=== PATIENT | female | born 1985 | race Caucasian/White ===

== ENCOUNTER 2020-11-27 10:37 | Outpatient (REF) | payer OTHER, SELFPAY ==
[2020-11-27 11:45] LABS: Blood Urea Nitrogen 12 mg/dL (9-16); Estimated Glomerular Filt Rate > 60
== END 2020-11-27 10:38 | disposition home or self-care (01) ==
LOC: HO.LAB 10:37
PROVIDERS: Visit Provider Psychiatry & Neurology Neurology
DX: R53.82 Chronic fatigue, unspecified (principal); G40.909 Epilepsy, unspecified, not intractable, without status epilepticus
CPT/HCPCS: 36415; 82565; 84520

== ENCOUNTER 2021-05-31 11:21 | Emergency (ER) | payer OTHER, SELFPAY ==
--- NOTE | ~2021-05-31 | XR_ITS ---
EXAMINATION: PORTABLE CHEST 1 VIEW CLINICAL INFORMATION: possible fungal infection? . COMPARISON: 02/02/2012. TECHNIQUE: Portable frontal view of the chest was obtained. FINDINGS: The lungs are well expanded. No focal infiltrate, effusion, edema, or pneumothorax. Cardiac and mediastinal silhouettes are within normal limits for technique. No acute bony abnormality seen. XR/XR chest 1V IMPRESSION: No evidence of acute disease.
[2021-05-31 11:52] VITALS: BP 114/79; PULSE 96; RESP 18; TEMP 36.6; O2SAT 98; BMI 25.0
--- NOTE | 2021-05-31 12:57 | ED.GENADULT ---
HPI - General Adult General Chief complaint: General Medical Stated complaint: rash Time Seen by Provider: 05/31/21 12:01 Source: patient Mode of arrival: ambulatory Limitations: no limitations History of Present Illness HPI narrative: Patient comes emergency room complaining of a rash that started approximately 2 weeks ago in her right upper back. Patient states that she was in [facility], prescribed topical antifungals and steroids. Patient states that the rash popped out in her left leg, vaginal wall, prescribed oral cephalexin, patient states the rash is now starting to appear under her right arm. Patient reports a 20 lb weight loss in 3-4 weeks. Patient has been applying vaseline ointment Related Data Previous Rx's Medication Instructions Recorded prednisone 50 mg tablet 50 mg PO DAILY #5 tab 05/31/21 triamcinolone acetonide 0.1 % 1 appl TOPICAL TID #80 g 05/31/21 topical ointment Allergies Allergy/AdvReac Type Severity Reaction Status Date / Time carisoprodol [From SOMA] Allergy Intermediate DOUBLE Unverified 04/11/20 15:56 VISION edrophonium [From TENSILON] Allergy Intermediate TACHYCARDIA Unverified 04/11/20 15:56 nitrofurantoin Allergy Intermediate TACHYCARDIA, Unverified 04/11/20 15:56 [From MACROBID] HIVES lactase Allergy Unknown GI ISSUES Unverified 04/11/20 15:56 [From LACTOSE FAST ACTING RELIEF] Review of Systems Review of Systems: Constitutional : No Weight loss, No Fever, No Chills, No Night Sweats, No Fatigue, No Malaise ENT/Mouth : No Hearing loss, No Ear Pain, No Nasal Congestion, No Sinus Pain, No Hoarseness, No sore throat, No Rhinorrhea, No Swallowing Difficulty Eyes: No Eye Pain, No Swelling, No Redness, No Foreign Body, No Discharge, No Vision Changes Cardiovascular : No Chest Pain, No SOB, No Dyspnea on Exertion, No Orthopnea, No Edema, No Palpitations Respiratory : No Cough, No Sputum, No Wheezing, No Smoke Exposure, No Dyspnea Gastrointestinal : No Nausea, No Vomiting, No Diarrhea, No Constipation, No abdominal Pain, No Hematochezia, No Melena Genitourinary : no irregular bleeding, No Dysuria, No Urinary Frequency, No Hematuria, No Urinary Incontinence, No Urgency, No Flank Pain, No Urinary Flow Changes, No Hesitancy Musculoskeletal : No joint pain, No Myalgias, No Joint Swelling Skin : Itchy rash in back, labia majora, left lower extremity Neuro : No Weakness, No Numbness, No Paresthesias, No Loss of Consciousness, No Dizziness, No Headache Psych : No Anxiety/Panic, No Depression, No SI/HI/AH/VH, No Social Issues, Heme/Lymph: No Bruising, No Bleeding,No Lymphadenopathy Endocrine : No Polyuria, No Polydipsia, No Temperature Intolerance [facility] Past Medical History Medical History Connective tissue disease Interstitial cystitis Mast cell disease Stroke Thyroid cancer Social History Social History Advance Directives: No Advance Directives Information Provided: Yes Patient : No Physical Exam Vital Signs: Vital Signs: Last Vital Signs Temp 98 F 05/31/21 11:52 Pulse 96 05/31/21 11:52 Resp 18 05/31/21 11:52 BP 114/79 05/31/21 11:52 Pulse Ox 98 05/31/21 11:52 Body Mass Index 25.0 Const: Other: Appearance: Alert. Oriented X3. No acute distress. Eyes: Pupils equal, round and reactive to light. ENT: Pharynx normal. Neck: Normal inspection. Neck supple. No lymph nodes noted. No crepitus CVS: Normal heart rate and rhythm. Pulses normal. Normal S1 and S2 Respiratory: No respiratory distress. Breath sounds normal. No Wheezing. No rales Abdomen: Soft and nontender. No rigidity. No distention. good BS x4 Skin: Skin warm and dry. Chronic dermatitis rash and upper back, left lower extremity and labia majora, no cellulitis Extremities: No lower extremity edema. No lower extremity edema. No Lacerations. No Rash Neuro: Oriented X 3. No motor deficit. No sensory deficit. Moving all extermities. No slurred speech. Course Course Course Narrative: I received records from [facility]. Patient was seen and they states 2 days ago. Patient was there due to an overdose of intranasal ketamine and oral Dilaudid. Also, patient had an extensive workup by Infectious Disease. In their note they state that patient is well known to their dermatology service, patient has chronic rash which has been going on for months, no acute component as the patient states. Patient's family friend as to talk to me in private. She states that the patient's mother is concerned about the patient's scratching behavior. Requesting a [facility] consult. Once patient is medically cleared, I will offer the evaluation to the patient. I discussed the patient's physical exam and showed pictures to Dr. Bustamante before we were able to get records from [facility], Dr. Bustamante thinks this is chronic dermatitis, which was confirmed by the patient's medical records from [facility] I discussed with the patient having her seen by [facility]/care team. Patient declined. Patient is not suicidal or homicidal. Patient states that she has been seen multiple times by [facility] at [facility]. Patient declined another consult. I discussed with the patient that she will be discharged with topical steroids. Medical Decision Making Lab Data Result diagrams: 05/31/21 14:29 Labs: Lab Results 05/31/21 05/31/21 Range/Units 14:29 14:29 Sodium 137 (135-145) mmol/L Potassium 4.0 (3.3-5.1) mmol/L Chloride 97 (96-108) mmol/L Carbon Dioxide 30 H (22-29) mmol/L Anion Gap 14 (12-20) BUN 7 L (9-16) mg/dL Creatinine 0.74 (0.5-1.4) mg/dL Estim Creat Clear Calc 105.1 Estimated GFR > 60 Random Glucose 96 (60-115) mg/dL Calcium 9.0 (8.4-10.2) mg/dL Magnesium 2.0 (1.6-2.6) mg/dL Total Bilirubin 0.6 (0.0-1.0) mg/dL Direct Bilirubin 0.3 (0.0-0.5) mg/dL AST 30 (5-31) U/L ALT 24 (0-31) U/L Alkaline Phosphatase 65 (39-117) U/L C-Reactive Protein 6.17 H (< or = 0.50) mg/dL Total Protein 6.7 (6.5-8.0) g/dL Albumin 4.0 (3.5-5.0) g/dL Imaging Data Chest x-ray: Radiologist's impression: FINDINGS: The lungs are well expanded. No focal infiltrate, effusion, edema, or pneumothorax. Cardiac and mediastinal silhouettes are within normal limits for technique. No acute bony abnormality seen. XR/XR chest 1V IMPRESSION: No evidence of acute disease. Discharge Plan Discharge Clinical Impression: Chronic dermatitis Patient Disposition: Home, Self-Care Instructions: Dermatitis (ED) Additional Instructions: Please follow-up with your primary care physician tomorrow. If you have any worsening or new symptoms, please return to the emergency room or call 911 Prescriptions: New prednisone 50 mg tablet 50 mg PO DAILY Qty: 5 RF: 0 triamcinolone acetonide 0.1 % ointment 1 appl topical TID Qty: 80 RF: 0
[2021-05-31] MEDS: Ketorolac Tromethamine 15 MG/ML VIAL IVPUSH (14:05)
[2021-05-31 14:57] LABS: C Reactive Protein 6.17 mg/dL (< or = 0.50)
[2021-05-31 14:59] LABS: Alanine Aminotransferase 24 U/L (0-31); Alkaline Phosphatase 65 U/L (39-117); Anion Gap 14 (12-20); Aspartate Amino Transferase 30 U/L (5-31); Bilirubin Direct 0.3 mg/dL (0.0-0.5); Bilirubin Total 0.6 mg/dL (0.0-1.0); Blood Urea Nitrogen 7 mg/dL (9-16); Carbon Dioxide 30 mmol/L (22-29); Chloride 97 mmol/L (96-108); Creatinine Clr Calc Pharmacy 105.1; Estimated Glomerular Filt Rate > 60; Glucose Random 96 mg/dL (60-115); Sodium 137 mmol/L (135-145); Total Protein 6.7 g/dL (6.5-8.0)
[2021-05-31 15:43] VITALS: BP 132/103; PULSE 100; RESP 18; O2SAT 99
[2021-06-02 08:34] LABS: HIV AB/AG Nonreactive (Nonreactive); HIV Num 1 0.05 S/CO (0.00-0.99)
== END 2021-05-31 16:09 | disposition home or self-care (01) ==
PROVIDERS: Emergency Provider Emergency Medicine; PCP Internal Medicine
DX: L30.9 Dermatitis, unspecified (principal); R07.81 Pleurodynia; Z79.899 Other long term (current) drug therapy
CPT/HCPCS: 36415; 71045; 80048; 80076; 83735; 86140; 87040; 87389; 96374; 99283; 99284; J1885

== ENCOUNTER 2021-07-08 10:12 | Emergency (ER) | payer OTHER, SELFPAY ==
[2021-07-08 10:58] VITALS: BP 122/84; PULSE 106; RESP 18; TEMP 36.8; O2SAT 97; BMI 24.3
--- NOTE | 2021-07-08 11:30 | ED.WOUNDLAC ---
HPI - Wound/Laceration General Chief Complaint: Wound/Laceration Stated Complaint: Leg wound/MRSA Time Seen by Provider: 07/08/21 11:27 Source: patient and old records reviewed Mode of arrival: ambulatory Limitations: no limitations History of Present Illness HPI narrative: 35 yo female with history of Erles Danlos syndrome, mast cell disease, POTS syndrome, anxiety/depression, chronic back pain s/p lumbar fusion at age 26, hx papillary thyroid cancer, hx remote ETOH abuse, hx dermatomyositis, fibromyalgia sent into the ER for IV antibiotics for a chronic, painful LLE wound that is growing MRSA and Pseudomonas grown on culture last week. She has a complex history and reports the lesions on her left leg and upper back started in April. They were initially found to be fungal. She has been hospitalized at both [facility] and [facility] several times since April. She reports being sent to a psych unit from [facility] as well. She reports it her left leg wound was biopsied as well. She completed a course of Keflex. On her PCP visit at [facility] on 07/04 cultures of the wounds were sent. She got a call today that they were growing MRSA and Pseudomonas. She has had severe pain in her left leg especially when dressings are changed and is exposed to air. She has also had chills. She had a 40 lb weight loss in the last couple of months. She just started getting her appetite back and recently gained 10 lb. She denies any fevers at home. She does live at home with her mom who was just found to be COVID positive. She has no shortness of breath or cough. Onset (ago): unknown Location: back Extremity Location: left: lower leg Place: home Patient tetanus UTD: Yes Associated symptoms: pain Treatments prior to arrival: bandage Related Data Home Medications Medication Instructions Recorded Confirmed chlorpromazine 100 mg tablet 1 tab PO QID 07/08/21 07/08/21 cholecalciferol (vitamin D3) 125 1 cap PO DAILY 07/08/21 07/08/21 mcg (5,000 unit) capsule clonazepam 1 mg tablet 1 tab PO BID PRN 07/08/21 07/08/21 diazepam 10 mg tablet 1 tab PO DAILY PRN 07/08/21 07/08/21 famotidine 40 mg tablet 1 tab PO BID 07/08/21 07/08/21 fluconazole 100 mg tablet 1 tab PO DAILY 07/08/21 07/08/21 gabapentin 300 mg capsule 1 cap PO TID 07/08/21 07/08/21 lamotrigine 150 mg tablet 1 tab PO DAILY 07/08/21 07/08/21 levocetirizine 5 mg tablet 5 mg PO BID 07/08/21 07/08/21 nystatin 500,000 unit tablet 500,000 unit PO TID 07/08/21 07/08/21 ondansetron HCl 4 mg tablet 4 mg PO DAILY PRN 07/08/21 07/08/21 quetiapine 25 mg tablet 1 - 3 tab PO BEDTIME PRN 07/08/21 07/08/21 tizanidine 4 mg tablet 1 tab PO TID PRN 07/08/21 07/08/21 Allergies Allergy/AdvReac Type Severity Reaction Status Date / Time carisoprodol [From SOMA] Allergy Intermediate DOUBLE Unverified 04/11/20 15:56 VISION edrophonium [From TENSILON] Allergy Intermediate TACHYCARDIA Unverified 04/11/20 15:56 nitrofurantoin Allergy Intermediate TACHYCARDIA, Unverified 04/11/20 15:56 [From MACROBID] HIVES lactase Allergy Unknown GI ISSUES Unverified 04/11/20 15:56 [From LACTOSE FAST ACTING RELIEF] Review of Systems Review of Systems: Constitutional: No Fever, + Chills ENT/Mouth: No sore throat, No Rhinorrhea, No Swallowing Difficulty Eyes: No Eye Pain, No Swelling, No Redness Cardiovascular: No Chest Pain, No SOB, No Orthopnea, No Edema Respiratory: No Cough, No Sputum, No Wheezing, No dyspnea Gastrointestinal: + Nausea, No Vomiting, No Diarrhea, No abdominal Pain Genitourinary: No Dysuria, No Urinary Frequency, No Hematuria Musculoskeletal: No joint pain, + Myalgias Skin: +Skin Lesions, No rash Neuro: No Weakness, No Numbness, No Dizziness, No Headache Psych: + Anxiety/Panic, + Depression Heme/Lymph: No Bruising, No Lymphadenopathy Endocrine: No Polyuria, No Polydipsia PMFSH Past Medical History Medical History Connective tissue disease Interstitial cystitis Mast cell disease Stroke Thyroid cancer Social History Social History Alcohol intake: former Patient Tobacco Use Status: Current everyday Tobacco user Substance Use Type: Marijuana Substance Use Frequency: Daily Advance Directives: No Advance Directives Information Provided: Yes Physical Exam Vital Signs: Vital Signs: Last Vital Signs Temp 98.2 F 07/08/21 10:58 Pulse 89 07/08/21 12:00 Resp 18 07/08/21 12:00 BP 109/82 07/08/21 12:00 Pulse Ox 100 07/08/21 12:00 BMI result Body Mass Index 24.3 Appearance: Alert. Oriented X3. Anxious and tearful Eyes: Pupils equal, round and reactive to light. ENT: Pharynx normal. Neck: Normal inspection. Neck supple. CVS: Normal heart rate and rhythm. Pulses normal. Respiratory: No respiratory distress. Breath sounds normal. Abdomen: Soft and nontender. +BS x4 Back: Upper back with a large erythematous well-demarcated area with irregular borders and central areas of crusting and scabbing. Tender to touch, warm to touch Skin: Skin warm and dry. Normal skin color. Normal skin turgor. Extremities: Left lower extremity with a large erythematous and scaly wound medially with central areas of oozing with purulence coating and discharge. Neuro: Oriented X 3. No motor deficit. No sensory deficit. Anxious and hyperverbal Course Course Course Narrative: 35-year-old female with very complex medical history presents to the ER with left lower extremity wounds that are growing Pseudomonas and MRSA. They are very painful. She has had no fevers at home but has had chills. She is not diabetic. Wounds are actively draining clear and yellow fluid of her left lower leg. She is due to go to wound care center tomorrow. Will plan to re-culture the wound, get septic workup and give her IV vancomycin and cefepime here to cover MRSA and Pseudomonas. IV dilaudid ordered for 10/10 leg pain. Anticipate she will require admission. Reevaluation(s) Reevaluation #1: Patient found to be COVID-19 positive. From a COVID standpoint she has minimal symptoms. Her leg pain is ongoing and severe. She rates it at a 7/10 after the IV Dilaudid. Will give a dose of IV toradol and see if this helps. She is in agreement to be admitted to the hospital for IV antibiotics and infectious disease assessment. She is unable to go to the Wound Care Center in the setting of being COVID-19 positive. Patient admitted for further care. Records from [facility] and [facility] have been obtained and will be scanned into her chart. MDM - Wound/Laceration Lab Data Result diagrams: 07/08/21 12:06 07/08/21 12:06 Labs: Lab Results 07/08/21 07/08/21 07/08/21 Range/Units 12: 12:06 12:06 WBC 4.9 (4.8-10.8) X10*3/uL RBC 3.45 L (4.20-5.50) X10*6/uL Hgb 10.5 L (12.0-16.0) g/dl Hct 33.4 L (37.0-47.0) % MCV 96.8 (80.0-98.0) fL MCH 30.4 (27.0-33.0) pg MCHC 31.4 (31.0-35.0) g/dl RDW 15.5 (11.0-16.0) % Plt Count 358 (160-400) X10*3/uL MPV 9.8 (9.4-12.3) fL Immature Gran % (Auto) 0.4 (0.0-0.4) % Neut % (Auto) 69.9 (45-73) % Lymph % (Auto) 17.7 L (20-40) % [place] % (Auto) 9.5 (2-11) % Eos % (Auto) 2.3 (0-4) % Baso % (Auto) 0.2 (0-2) % Lymph # (Auto) 0.9 L (1.2-4.9) X10*3/uL [place] # (Auto) 0.5 (0.1-1.2) X10*3/uL Eos # (Auto) 0.1 (0.0-0.4) X10*3/uL Baso # (Auto) 0.0 (0.0-0.2) X10*3/uL Abs Immat Gran (auto) 0.02 (0.00-0.03) X10*3/uL Absolute Neuts (auto) 3.4 (2.0-8.3) x10*3/uL Absolute Nucleated RBC 0.000 (0.0-0.012) X10*3/uL Nucleated RBC % (auto) 0.0 (0.0-0.2) /100WBC ESR (0-20) MM/HR PT 10.4 (9.9-13.0) SEC INR 0.9 (0.9-1.1) APTT 34.5 (24.1-38.0) SEC Sodium 139 (135-145) mmol/L Potassium 4.3 (3.3-5.1) mmol/L Chloride 109 H (96-108) mmol/L Carbon Dioxide 24 (22-29) mmol/L Anion Gap 10 L (12-20) BUN 11 (9-16) mg/dL Creatinine 0.60 (0.5-1.4) mg/dL Estim Creat Clear Calc 129.6 Estimated GFR > 60 Random Glucose 77 (60-115) mg/dL Lactic Acid (0.5-2.0) mmol/L Calcium 9.0 (8.4-10.2) mg/dL Magnesium 2.0 (1.6-2.6) mg/dL Total Bilirubin < 0.2 (0.0-1.0) mg/dL Direct Bilirubin < 0.2 (0.0-0.5) mg/dL AST 19 (5-31) U/L ALT 13 (0-31) U/L Alkaline Phosphatase 58 (39-117) U/L Total Creatine Kinase 27 (26-140) U/L C-Reactive Protein 0.29 (< or = 0.50) mg/dL Total Protein 6.4 L (6.5-8.0) g/dL Albumin 3.8 (3.5-5.0) g/dL Urine Color Urine Appearance Urine pH (5.0-8.0) Ur Specific [place] (1.005-1.025) Urine Protein (NEG-TRACE) MG/DL Urine Glucose (UA) (NEG) MG/DL Urine Ketones (NEG) MG/DL Urine Blood (NEG) Urine Nitrite (NEG) Ur Leukocyte Esterase (NEG) Urine Test (NEGATIVE) Urine Opiates Screen (Not Detect) Urine Fentanyl Screen (Not Detect) Ur Barbiturates Screen (Not Detect) Ur Phencyclidine Scrn (Not Detect) Ur Amphetamines Screen (Not Detect) U Benzodiazepines Scrn (Not Detect) Urine Cocaine Screen (Not Detect) U Marijuana (THC) Screen (Not Detect) COVID-19 ([place]) (Negative) COVID-19 Clin Com 07/08/21 07/08/21 07/08/21 Range/Units 12:06 12:06 12:06 WBC (4.8-10.8) X10*3/uL RBC (4.20-5.50) X10*6/uL Hgb (12.0-16.0) g/dl Hct (37.0-47.0) % MCV (80.0-98.0) fL MCH (27.0-33.0) pg MCHC (31.0-35.0) g/dl RDW (11.0-16.0) % Plt Count (160-400) X10*3/uL MPV (9.4-12.3) fL Immature Gran % (Auto) (0.0-0.4) % Neut % (Auto) (45-73) % Lymph % (Auto) (20-40) % [place] % (Auto) (2-11) % Eos % (Auto) (0-4) % Baso % (Auto) (0-2) % Lymph # (Auto) (1.2-4.9) X10*3/uL [place] # (Auto) (0.1-1.2) X10*3/uL Eos # (Auto) (0.0-0.4) X10*3/uL Baso # (Auto) (0.0-0.2) X10*3/uL Abs Immat Gran (auto) (0.00-0.03) X10*3/uL Absolute Neuts (auto) (2.0-8.3) x10*3/uL Absolute Nucleated RBC (0.0-0.012) X10*3/uL Nucleated RBC % (auto) (0.0-0.2) /100WBC ESR 36 H (0-20) MM/HR PT (9.9-13.0) SEC INR (0.9-1.1) APTT (24.1-38.0) SEC Sodium (135-145) mmol/L Potassium (3.3-5.1) mmol/L Chloride (96-108) mmol/L Carbon Dioxide (22-29) mmol/L Anion Gap (12-20) BUN (9-16) mg/dL Creatinine (0.5-1.4) mg/dL Estim Creat Clear Calc Estimated GFR Random Glucose (60-115) mg/dL Lactic Acid 0.7 (0.5-2.0) mmol/L Calcium (8.4-10.2) mg/dL Magnesium (1.6-2.6) mg/dL Total Bilirubin (0.0-1.0) mg/dL Direct Bilirubin (0.0-0.5) mg/dL AST (5-31) U/L ALT (0-31) U/L Alkaline Phosphatase (39-117) U/L Total Creatine Kinase (26-140) U/L C-Reactive Protein (< or = 0.50) mg/dL Total Protein (6.5-8.0) g/dL Albumin (3.5-5.0) g/dL Urine Color YELLOW Urine Appearance CLEAR Urine pH 5.5 (5.0-8.0) Ur Specific [place] 1.010 (1.005-1.025) Urine Protein NEG (NEG-TRACE) MG/DL Urine Glucose (UA) NEG (NEG) MG/DL Urine Ketones NEG (NEG) MG/DL Urine Blood NEG (NEG) Urine Nitrite NEG (NEG) Ur Leukocyte Esterase NEG (NEG) Urine Test (NEGATIVE) Urine Opiates Screen (Not Detect) Urine Fentanyl Screen (Not Detect) Ur Barbiturates Screen (Not Detect) Ur Phencyclidine Scrn (Not Detect) Ur Amphetamines Screen (Not Detect) U Benzodiazepines Scrn (Not Detect) Urine Cocaine Screen (Not Detect) U Marijuana (THC) Screen (Not Detect) COVID-19 ([facility]) (Negative) COVID-19 Clin Com 07/08/21 07/08/21 07/08/21 Range/Units 12:06 12:07 12:15 WBC (4.8-10.8) X10*3/uL RBC (4.20-5.50) X10*6/uL Hgb (12.0-16.0) g/dl Hct (37.0-47.0) % MCV (80.0-98.0) fL MCH (27.0-33.0) pg MCHC (31.0-35.0) g/dl RDW (11.0-16.0) % Plt Count (160-400) X10*3/uL MPV (9.4-12.3) fL Immature Gran % (Auto) (0.0-0.4) % Neut % (Auto) (45-73) % Lymph % (Auto) (20-40) % [place] % (Auto) (2-11) % Eos % (Auto) (0-4) % Baso % (Auto) (0-2) % Lymph # (Auto) (1.2-4.9) X10*3/uL [place] # (Auto) (0.1-1.2) X10*3/uL Eos # (Auto) (0.0-0.4) X10*3/uL Baso # (Auto) (0.0-0.2) X10*3/uL Abs Immat Gran (auto) (0.00-0.03) X10*3/uL Absolute Neuts (auto) (2.0-8.3) x10*3/uL Absolute Nucleated RBC (0.0-0.012) X10*3/uL Nucleated RBC % (auto) (0.0-0.2) /100WBC ESR (0-20) MM/HR PT (9.9-13.0) SEC INR (0.9-1.1) APTT (24.1-38.0) SEC Sodium (135-145) mmol/L Potassium (3.3-5.1) mmol/L Chloride (96-108) mmol/L Carbon Dioxide (22-29) mmol/L Anion Gap (12-20) BUN (9-16) mg/dL Creatinine (0.5-1.4) mg/dL Estim Creat Clear Calc Estimated GFR Random Glucose (60-115) mg/dL Lactic Acid (0.5-2.0) mmol/L Calcium (8.4-10.2) mg/dL Magnesium (1.6-2.6) mg/dL Total Bilirubin (0.0-1.0) mg/dL Direct Bilirubin (0.0-0.5) mg/dL AST (5-31) U/L ALT (0-31) U/L Alkaline Phosphatase (39-117) U/L Total Creatine Kinase (26-140) U/L C-Reactive Protein (< or = 0.50) mg/dL Total Protein (6.5-8.0) g/dL Albumin (3.5-5.0) g/dL Urine Color Urine Appearance Urine pH (5.0-8.0) Ur Specific [place] (1.005-1.025) Urine Protein (NEG-TRACE) MG/DL Urine Glucose (UA) (NEG) MG/DL Urine Ketones (NEG) MG/DL Urine Blood (NEG) Urine Nitrite (NEG) Ur Leukocyte Esterase (NEG) Urine Test NEGATIVE (NEGATIVE) Urine Opiates Screen Not Detected (Not Detect) Urine Fentanyl Screen Not Detected (Not Detect) Ur Barbiturates Screen Not Detected (Not Detect) Ur Phencyclidine Scrn Not Detected (Not Detect) Ur Amphetamines Screen Not Detected (Not Detect) U Benzodiazepines Scrn POSITIVE H (Not Detect) Urine Cocaine Screen Not Detected (Not Detect) U Marijuana (THC) Screen POSITIVE H (Not Detect) COVID-19 ([place]) Positive A (Negative) COVID-19 Clin Com See Note Critical Care Time Critical Care Time Critical Care Time: Yes Total Critical Care Time: 36 Attestation: I have personally provided critical care time exclusive of time spent on separately billable procedures. Time includes review of lab data, prior records, radiology results, discussion with consultants/hospitalists, and monitoring for potential decompensation. Intervention performed as documented. Discharge Plan Discharge Clinical Impression: Infection of wound due to methicillin resistant Staphylococcus aureus (MRSA), Infection, Pseudomonas, Left leg pain Patient Disposition: Admitted As Inpatient Prescriptions: No Action quetiapine 25 mg tablet 1 - 3 tab PO BEDTIME PRN (Reason: Insomnia) RF: 0 lamotrigine 150 mg tablet 1 tab PO DAILY RF: 0 chlorpromazine 100 mg tablet 1 tab PO QID RF: 0 fluconazole 100 mg tablet 1 tab PO DAILY RF: 0 famotidine 40 mg tablet 1 tab PO BID RF: 0 clonazepam 1 mg tablet 1 tab PO BID PRN (Reason: Anxiety) RF: 0 nystatin 500,000 unit tablet 500,000 unit PO TID RF: 0 gabapentin 300 mg capsule 1 cap PO TID RF: 0 diazepam 10 mg tablet 1 tab PO DAILY PRN (Reason: Anxiety) RF: 0 levocetirizine 5 mg tablet 5 mg PO BID RF: 0 tizanidine 4 mg tablet 1 tab PO TID PRN (Reason: SPASM) RF: 0 ondansetron HCl 4 mg tablet 4 mg PO DAILY PRN (Reason: Nausea) RF: 0 cholecalciferol (vitamin D3) 125 mcg (5,000 unit) capsule 1 cap PO DAILY RF: 0
[2021-07-08 12:00] VITALS: BP 109/82; PULSE 89; RESP 18; O2SAT 100
[2021-07-08 12:14] LABS: MANUAL DIFF FLAG NO
[2021-07-08 12:16] LABS: Basophils Percent Auto 0.2 % (0-2); Eosinophils Absolute Auto 0.1 X10*3/uL (0.0-0.4); Eosinophils Percent Auto 2.3 % (0-4); Hematocrit 33.4 % (37.0-47.0); Hemoglobin 10.5 g/dl (12.0-16.0); Imm Gran Abs Auto 0.02 X10*3/uL (0.00-0.03); Imm Gran Pct Auto 0.4 % (0.0-0.4); Lymphocytes Absolute Auto 0.9 X10*3/uL (1.2-4.9); Lymphocytes Percent Auto 17.7 % (20-40); Mean Corpuscular HGB Conc 31.4 g/dl (31.0-35.0); Mean Corpuscular Hemoglobin 30.4 pg (27.0-33.0); Mean Corpuscular Volume 96.8 fL (80.0-98.0); Mean Platelet Volume 9.8 fL (9.4-12.3); Monocytes Absolute Auto 0.5 X10*3/uL (0.1-1.2); Monocytes Percent Auto 9.5 % (2-11); Neutrophils Absolute Auto 3.4 x10*3/uL (2.0-8.3); Neutrophils Percent Auto 69.9 % (45-73); Platelet Count 358 X10*3/uL (160-400); Red Blood Count 3.45 X10*6/uL (4.20-5.50); Red Cell Distribution Width 15.5 % (11.0-16.0); White Blood Count 4.9 X10*3/uL (4.8-10.8)
[2021-07-08 12:21] LABS: INTERNATIONAL NORM RATIO 0.9 (0.9-1.1); Prothrombin Time 10.4 SEC (9.9-13.0)
[2021-07-08 12:23] LABS: Partial Thromboplastin Time 34.5 SEC (24.1-38.0)
[2021-07-08 12:27] LABS: Lactic Acid 0.7 mmol/L (0.5-2.0)
[2021-07-08 12:27] LABS: UPreg QC Valid YES; Urine Pregnancy NEGATIVE (NEGATIVE)
[2021-07-08] MEDS: 0.9 % Sodium Chloride 1,000 ML 999 ML IVCONT (12:31)
[2021-07-08] MEDS: cefEPime HCl 2 GM in 0.9 % Sodium Chloride 50 ML IV (12:31)
[2021-07-08] MEDS: HYDROmorphone HCl 1 MG/ML SYRINGE IVPUSH ×2 (12:31→16:27)
--- NOTE | 2021-07-08 12:31 | PHA.MEDREC ---
Pharmacy Consult ? Medication Reconciliation Pharmacy has completed the medication reconciliation. Per patient recent changes in medications include lamotrigine (increased to 150mg). Patient has stopped taking bupropion, oxybutynin, and trazodone and has recently started seroquel. Of note, patient takes fluconazole 100mg qd alternating with nystatin 251546 units TID every other month to treat some fungal colonization on back and legs. Thanks Jared
[2021-07-08 12:32] LABS: Amphetamine Screen Urine Not Detected (Not Detect); Barbiturates, Urine Not Detected (Not Detect); Benzodiazepines Screen Urine POSITIVE (Not Detect); Cannabinoid Screen Urine POSITIVE (Not Detect); Cocaine Screen Urine Not Detected (Not Detect); Fentanyl, urine Not Detected (Not Detect); Opiate Screen Urine Not Detected (Not Detect); Phencyclidine Screen Urine Not Detected (Not Detect)
[2021-07-08 12:39] LABS: Alanine Aminotransferase 13 U/L (0-31); Albumin Level 3.8 g/dL (3.5-5.0); Alkaline Phosphatase 58 U/L (39-117); Anion Gap 10 (12-20); Aspartate Amino Transferase 19 U/L (5-31); Bilirubin Direct < 0.2 mg/dL (0.0-0.5); Bilirubin Total < 0.2 mg/dL (0.0-1.0); Blood Urea Nitrogen 11 mg/dL (9-16); C Reactive Protein 0.29 mg/dL (< or = 0.50); Carbon Dioxide 24 mmol/L (22-29); Chloride 109 mmol/L (96-108); Creatinine Clr Calc Pharmacy 129.6; Estimated Glomerular Filt Rate > 60; Glucose Random 77 mg/dL (60-115); Potassium 4.3 mmol/L (3.3-5.1); Sodium 139 mmol/L (135-145); Total Protein 6.4 g/dL (6.5-8.0)
--- NOTE | 2021-07-08 12:41 | PC.NURSE ---
patient a&ox3, iv inserted, labs drawn, vss, pt medicated per order, pt given po per pt request, will continue to monitor.
[2021-07-08 12:43] LABS: Appearance Urine CLEAR; Color Urine YELLOW
[2021-07-08 12:44] LABS: Glucose Urine UA NEG (NEG); Nitrite Urine NEG (NEG); PH 5.5 (5.0-8.0); Urine Blood NEG (NEG); Urine Ketones NEG (NEG); Urine Protein NEG (NEG-TRACE)
[2021-07-08 12:44] LABS: IDNOW Serial# 55D5AD1C
[2021-07-08 12:45] LABS: COVID-19 Test Positive (Negative)
[2021-07-08 12:45] LABS: Leukocyte Esterase Urine NEG (NEG)
[2021-07-08 13:12] LABS: Erythrocyte Sedimentation Rate 36 MM/HR (0-20)
[2021-07-08] MEDS: vancomycin HCL 750 MG in 0.9 % Sodium Chloride 250 ML 265 MG IV (13:20)
[2021-07-08] MEDS: lamoTRIgine 25 MG TABLET 150 MG PO (14:32)
[2021-07-08] MEDS: Famotidine 20 MG TABLET 40 MG PO (14:32)
[2021-07-08] MEDS: Gabapentin 300 MG CAPSULE PO (14:32)
[2021-07-08] MEDS: chlorproMAZINE HCl 100 MG TABLET PO ×2 (14:32→16:27)
[2021-07-08] MEDS: Ketorolac Tromethamine 30 MG/ML VIAL IVPUSH (14:39)
--- NOTE | 2021-07-08 14:42 | PC.NURSE ---
patient a&ox3, pt medicated per order, hospitalist at bedside, will call pharmacy to retime abx that were recently given
[2021-07-08 15:14] VITALS: BP 112/65; PULSE 90; RESP 16; TEMP 36.4; O2SAT 98
[2021-07-08] MEDS: clonazePAM 1 MG TABLET PO (16:27)
[2021-07-08] MEDS: TiZANidine HCL 4 MG TABLET PO (16:27)
--- NOTE | 2021-07-08 18:05 | PC.NURSE ---
patient a&ox3, pt pacing in room, wants to speak with Dr. Siegel to discharge, pt state she would rather go home and help her mother who has covid. Dr. siegel was notified and spoke with him in person in the ED, will continue to monitor.
--- NOTE | 2021-07-08 18:32 | PC.NURSE ---
dr siegel spoke with patient, patient has left ama she understands she should remain inpt for iv antibiotics.
--- NOTE | 2021-07-08 18:34 | PC.NURSE ---
unable to get the patient off the tracker, charge is aware
== END 2021-07-08 18:18 | disposition left against medical advice (07) ==
PROVIDERS: Physician Assistant; Emergency Provider Emergency Medicine; PCP Internal Medicine
DX: U07.1 COVID-19 (principal); S81.802A Unspecified open wound, left lower leg, initial encounter; B95.62 Methicillin resistant Staphylococcus aureus infection as the cause of diseases classified elsewhere; B96.5 Pseudomonas (aeruginosa) (mallei) (pseudomallei) as the cause of diseases classified elsewhere; X58.XXXA Exposure to other specified factors, initial encounter; F41.9 Anxiety disorder, unspecified; F12.90 Cannabis use, unspecified, uncomplicated; Q79.60 Ehlers-Danlos syndrome, unspecified; D47.02 Systemic mastocytosis; I49.8 Other specified cardiac arrhythmias; Z85.850 Personal history of malignant neoplasm of thyroid; Y93.9 Activity, unspecified; Y92.9 Unspecified place or not applicable; Y99.9 Unspecified external cause status
CPT/HCPCS: 36415; 80048; 80076; 80307; 81003; 81025; 82550; 83605; 83735; 85025; 85610; 85652; 85730; 86140; 87040; 87071; 87147; 87186; 87205; 87635; 96361; 96374; 96375; 99285; J0692; J1170; J1885; J3370

== ENCOUNTER 2021-07-09 06:26 | Inpatient (IN) | payer OTHER, SELFPAY ==
[2021-07-09 07:56] VITALS: BP 119/70; PULSE 102; RESP 18; TEMP 36.7; O2SAT 100; BMI 24.3
--- NOTE | 2021-07-09 08:45 | ED.GENADULT ---
HPI - General Adult General Chief complaint: General Medical Stated complaint: covid+ - MRSA Time Seen by Provider: 07/09/21 08:45 Source: patient Mode of arrival: ambulatory Limitations: no limitations History of Present Illness HPI narrative: review of notes was admitted yesterday for + MRSA and pseudomonas in chronic wounds of left leg from routine culture she was to be admitted given dose of cefepime and vancomycin but signed out AMA. Had labs done yesterday - 1/2 GPC on blood cultures, comes back for continued pain also found to be COVID + yesterday. MD complaint: LE wound, COVID +, possible pos blood culture Onset (ago): week(s) Location: left and lower extremity Radiation: non-radiation Severity: severe Quality: aching Pain Consistency: constant Relieving factors: none Exacerbating factors: none Associated symptoms: rash Treatments prior to arrival: other (has been seen at [facility] and [facility], given covid status cannot go to wound care center now, pending wound culture from yesterday) Related Data Home Medications Medication Instructions Recorded Confirmed chlorpromazine 100 mg tablet 1 tab PO QID 07/08/21 07/09/21 cholecalciferol (vitamin D3) 125 1 cap PO DAILY 07/08/21 07/09/21 mcg (5,000 unit) capsule clonazepam 1 mg tablet 1 tab PO BID PRN 07/08/21 07/09/21 diazepam 10 mg tablet 1 tab PO DAILY PRN 07/08/21 07/09/21 famotidine 40 mg tablet 1 tab PO BID 07/08/21 07/09/21 fluconazole 100 mg tablet 1 tab PO DAILY 07/08/21 07/09/21 gabapentin 300 mg capsule 1 cap PO TID 07/08/21 07/09/21 lamotrigine 150 mg tablet 1 tab PO DAILY 07/08/21 07/09/21 levocetirizine 5 mg tablet 5 mg PO BID 07/08/21 07/09/21 nystatin 500,000 unit tablet 500,000 unit PO TID 07/08/21 07/09/21 ondansetron HCl 4 mg tablet 4 mg PO DAILY PRN 07/08/21 07/09/21 quetiapine 25 mg tablet 1 - 3 tab PO BEDTIME PRN 07/08/21 07/09/21 tizanidine 4 mg tablet 1 tab PO TID PRN 07/08/21 07/09/21 Allergies Allergy/AdvReac Type Severity Reaction Status Date / Time carisoprodol [From SOMA] Allergy Intermediate DOUBLE Unverified 04/11/20 15:56 VISION edrophonium [From TENSILON] Allergy Intermediate TACHYCARDIA Unverified 04/11/20 15:56 nitrofurantoin Allergy Intermediate TACHYCARDIA, Unverified 04/11/20 15:56 [From MACROBID] HIVES lactase Allergy Unknown GI ISSUES Unverified 04/11/20 15:56 [From LACTOSE FAST ACTING RELIEF] Review of Systems Review of Systems: Constitutional : No Fever, No Chills ENT/Mouth : No sore throat, No Rhinorrhea Eyes: No Eye Pain, No Swelling, No Redness Cardiovascular : No Chest Pain, No SOB Respiratory : No Cough, No Sputum Gastrointestinal : No Nausea, No Vomiting, No Diarrhea, No abdominal Pain Genitourinary : No Dysuria, No Hematuria Musculoskeletal : No joint pain, No Myalgias, No Joint Swelling Skin : pos Skin Lesions, positive skin rash Neuro : No Weakness, No Numbness, No Headache Psych : No Anxiety, No Depression Heme/Lymph: No Bruising, No Bleeding,No Lymphadenopathy Endocrine : No Polyuria, No Polydipsia All other systems reviewed and are negative [facility] Past Medical History Attestation statement: The following information was validated with the patient. Medical History Connective tissue disease Interstitial cystitis Mast cell disease Stroke Thyroid cancer Social History Social History Alcohol intake: former Patient Tobacco Use Status: Current everyday Tobacco user Use of substances other than those prescribed or required for medical reasons: No Substance Use Type: Marijuana Advance Directives: No Advance Directives Information Provided: No Physical Exam Vital Signs: Vital Signs: Last Vital Signs Temp 98.0 F 07/09/21 07:56 Pulse 95 07/09/21 09:56 Resp 18 07/09/21 09:56 BP 112/87 07/09/21 09:56 Pulse Ox 100 07/09/21 09:56 BMI result Body Mass Index 24.3 Appearance: Alert. Oriented X3. No acute distress. Very anxious Eyes: Pupils equal, round and reactive to light. ENT: Pharynx normal. Neck: Normal inspection. Neck supple. CVS: Normal heart rate and rhythm. Pulses normal. Respiratory: No respiratory distress. Breath sounds normal. Abdomen: Soft and non-tender. Skin: Skin warm and dry. Normal skin color. Normal skin turgor. Extremities: No lower extremity edema. LLE wound present - no extending swelling or erythema but ulcer noted with yellowish crusting no change from yesterday's picture Neuro: Oriented X 3. No motor deficit. No sensory deficit. Course Course Course Narrative: I have asked addiction medicine to see Ashley as well while she is here given concerns for opiate needs. Given food while in ED to increase blood sugar Medical Decision Making MDM Narrative Medical decision making narrative: 35 yo female with hx of Ehler's Danlos, chronic leg wounds, chronic pain, mast cell, here with LLE wound that tested positive for pseudomonas/MRSA - seen yesterday admitted left AMA now 1/2 GPC on blood culture, wound culture pending, will restart cefepime and vancomycin - did offer addiction medicine consult. Plan to admit until cultures returned Lab Data Result diagrams: 07/09/21 09:13 07/09/21 09:13 Labs: Lab Results 07/09/21 07/09/21 07/09/21 Range/Units 09:12 09:13 09:13 WBC 4.3 L (4.8-10.8) X10*3/uL RBC 3.47 L (4.20-5.50) X10*6/uL Hgb 10.5 L (12.0-16.0) g/dl Hct 34.3 L (37.0-47.0) % MCV 98.8 H (80.0-98.0) fL MCH 30.3 (27.0-33.0) pg MCHC 30.6 L (31.0-35.0) g/dl RDW 15.8 (11.0-16.0) % Plt Count 363 (160-400) X10*3/uL MPV 9.8 (9.4-12.3) fL Immature Gran % (Auto) 0.7 H (0.0-0.4) % Neut % (Auto) 62.0 (45-73) % Lymph % (Auto) 23.6 (20-40) % [place] % (Auto) 10.2 (2-11) % Eos % (Auto) 3.0 (0-4) % Baso % (Auto) 0.5 (0-2) % Lymph # (Auto) 1.0 L (1.2-4.9) X10*3/uL [place] # (Auto) 0.4 (0.1-1.2) X10*3/uL Eos # (Auto) 0.1 (0.0-0.4) X10*3/uL Baso # (Auto) 0.0 (0.0-0.2) X10*3/uL Abs Immat Gran (auto) 0.03 (0.00-0.03) X10*3/uL Absolute Neuts (auto) 2.7 (2.0-8.3) x10*3/uL Absolute Nucleated RBC 0.000 (0.0-0.012) X10*3/uL Nucleated RBC % (auto) 0.0 (0.0-0.2) /100WBC Sodium 141 (135-145) mmol/L Potassium 4.7 (3.3-5.1) mmol/L Chloride 107 (96-108) mmol/L Carbon Dioxide 28 (22-29) mmol/L Anion Gap 11 L (12-20) BUN 12 (9-16) mg/dL Creatinine 0.60 (0.5-1.4) mg/dL Estim Creat Clear Calc 129.6 Estimated GFR > 60 Random Glucose 55 L* (60-115) mg/dL Lactic Acid 1.0 (0.5-2.0) mmol/L Calcium 9.1 (8.4-10.2) mg/dL Magnesium 2.0 (1.6-2.6) mg/dL Total Bilirubin < 0.2 (0.0-1.0) mg/dL Direct Bilirubin < 0.2 (0.0-0.5) mg/dL AST 21 (5-31) U/L ALT 13 (0-31) U/L Alkaline Phosphatase 61 (39-117) U/L Total Protein 6.6 (6.5-8.0) g/dL Albumin 4.0 (3.5-5.0) g/dL Discharge Plan Discharge Clinical Impression: Positive culture findings in wound, COVID-19 Open wound, lower leg Qualifiers: Encounter type: initial encounter Laterality: left Qualified Code(s): S81.802A - Unspecified open wound, left lower leg, initial encounter Patient Disposition: Admitted As Inpatient
--- NOTE | 2021-07-09 08:55 | PHA.MEDREC ---
Pharmacy Consult ? Medication Reconciliation Pharmacy has completed the medication reconciliation. Did med rec yesterday. Patient alternates between fluconazole and nystatin q month. On fluconazole now Thanks Jared
[2021-07-09 09:22] LABS: MANUAL DIFF FLAG NO
[2021-07-09 09:28] LABS: Basophils Percent Auto 0.5 % (0-2); Eosinophils Absolute Auto 0.1 X10*3/uL (0.0-0.4); Hematocrit 34.3 % (37.0-47.0); Hemoglobin 10.5 g/dl (12.0-16.0); Imm Gran Abs Auto 0.03 X10*3/uL (0.00-0.03); Imm Gran Pct Auto 0.7 % (0.0-0.4); Lymphocytes Percent Auto 23.6 % (20-40); Mean Corpuscular HGB Conc 30.6 g/dl (31.0-35.0); Mean Corpuscular Hemoglobin 30.3 pg (27.0-33.0); Mean Corpuscular Volume 98.8 fL (80.0-98.0); Mean Platelet Volume 9.8 fL (9.4-12.3); Monocytes Absolute Auto 0.4 X10*3/uL (0.1-1.2); Monocytes Percent Auto 10.2 % (2-11); Neutrophils Absolute Auto 2.7 x10*3/uL (2.0-8.3); Platelet Count 363 X10*3/uL (160-400); Red Blood Count 3.47 X10*6/uL (4.20-5.50); Red Cell Distribution Width 15.8 % (11.0-16.0); White Blood Count 4.3 X10*3/uL (4.8-10.8)
[2021-07-09 09:42] LABS: Alanine Aminotransferase 13 U/L (0-31); Alkaline Phosphatase 61 U/L (39-117); Anion Gap 11 (12-20); Aspartate Amino Transferase 21 U/L (5-31); Bilirubin Direct < 0.2 mg/dL (0.0-0.5); Bilirubin Total < 0.2 mg/dL (0.0-1.0); Blood Urea Nitrogen 12 mg/dL (9-16); Calcium 9.1 mg/dL (8.4-10.2); Carbon Dioxide 28 mmol/L (22-29); Chloride 107 mmol/L (96-108); Creatinine Clr Calc Pharmacy 129.6; Estimated Glomerular Filt Rate > 60; Glucose Random 55 mg/dL (60-115); Potassium 4.7 mmol/L (3.3-5.1); Sodium 141 mmol/L (135-145); Total Protein 6.6 g/dL (6.5-8.0)
[2021-07-09] MEDS: HYDROmorphone HCl 1 MG/ML SYRINGE IVPUSH ×4 (09:50→19:55)
[2021-07-09] MEDS: cefEPime HCl 2 GM in 0.9 % Sodium Chloride 50 ML IV ×2 (09:51→22:42)
[2021-07-09 09:56] VITALS: BP 112/87; PULSE 95; RESP 18; O2SAT 100
--- NOTE | 2021-07-09 10:00 | PC.NURSE ---
pt alert and oriented, skin pwd, respirations even and unlabored. pt reports for the last few months waving a wound on her left calf area- wound is large with some open areas, red and yellow in color, painful, pain at 9/10. pt reports going in and out of hospital for this wound but nothing is helping pt given food and orange juice because her sugar came back at 55
--- NOTE | 2021-07-09 10:32 | MHC.RECOVRN ---
Met with pt to discuss substance use related to pain management as patient has been to local hospitals requesting opioids for chronic and acute pain in leg. Pt reports only taking opioids as (and when) prescribed. Pt UDS negative for opiates and fentanyl on 07/08. Pt states hydromorphone is the only thing that helps, they gave me oxycodone and it doesn't do anything. Pt reports ketamine has helped in the past with pain. Pt reports having a enrober, urologist, and psychiatric providers. Pt does not identify as having a DAREN. Pt interested in anything that will help me feel normal and take away the pain, including MOUD. Discussed case with Tran Hoang APRN. Will continue to follow.
[2021-07-09] MEDS: vancomycin HCL 750 MG in 0.9 % Sodium Chloride 250 ML 265 MG IV (10:37)
--- NOTE | 2021-07-09 10:39 | PC.NURSE ---
PT REPORTS THAT PAIN HAS SLIGHTLY IMPROVED PAIN AT 7/10
[2021-07-09 12:24] VITALS: BP 114/80; PULSE 93; RESP 18; O2SAT 98
[2021-07-09] MEDS: Nicotine 21 MG PATCH.TD24 TRANSDERMA (12:24)
--- NOTE | 2021-07-09 14:14 | PHA.PROG ---
Admission Date/Time: July 09, 2021 13:53 Indication: skin and skin structure Weight in k.307 kg Adjusted body weight in Kg: [place] body weight in Kg: Obesity Dosing Indication % IBW: Serum Creatinine - Last 168 Hours 07/09/21 09:13 Creatinine 0.60 Estimated CrCl and GFR - Last 168 Hours 07/09/21 09:13 Estim Creat Clear Calc 129.6 Estimated GFR > 60 Vancomycin Loading Dose: Current Vancomycin Dosing Regimen: 1250mg IV q12h Vancomycin Monitoring using AUC goal of 400 - 600 range with trough as surrogate marker: auc 469, trough 13.0 Date and Time for next Vancomycin Level to be drawn: 07/10 @ 1999 Pharmacist Comments on Vancomycin Plan: Vancomycin dosing will take advantage of [employer] as a clinical decision support tool that uses Bayesian modeling to calculate individual patient's pharmacokinetic parameters and forecast the patient's drug concentration time course with the target goal AUC 24 range of 400 - 600 mg/L/hr.
[2021-07-09 14:52] VITALS: BP 116/71; PULSE 99; RESP 18; O2SAT 99
[2021-07-09] MEDS: 0.9 % Sodium Chloride Flush 3 ML SYRINGE IVFLUSH (14:52)
[2021-07-09] MEDS: clonazePAM 1 MG TABLET PO (15:46)
[2021-07-09] MEDS: chlorproMAZINE HCl 100 MG TABLET PO ×2 (15:48→21:49)
[2021-07-09] MEDS: oxyCODONE HCl Immed Release 5 MG TABLET 10 MG PO ×2 (18:22→23:26)
--- NOTE | 2021-07-09 19:36 | PC.NURSE ---
Assumed care of pt. Pt sleeping, arouses to voice, even and non-labored respirations. Plan for admission pending inpt bed assignment
[2021-07-09] MEDS: Famotidine 20 MG TABLET 40 MG PO (21:48)
[2021-07-09] MEDS: TiZANidine HCL 4 MG TABLET PO (21:49)
[2021-07-09] MEDS: Gabapentin 300 MG CAPSULE PO (21:49)
[2021-07-09] MEDS: diazePAM 5 MG TABLET 10 MG PO (22:34)
[2021-07-09] MEDS: vancomycin HCL 1,250 MG in 0.9 % Sodium Chloride 250 ML 166.67 MG IV (22:38)
[2021-07-09 22:56] VITALS: BP 139/83; PULSE 98; RESP 18; O2SAT 99
[2021-07-10] MEDS: QUEtiapine Fumarate 25 MG TABLET PO (00:11)
[2021-07-10] MEDS: HYDROmorphone HCl 1 MG/ML SYRINGE IVPUSH (00:53)
--- NOTE | 2021-07-10 02:19 | PC.NURSE ---
Late entry. Pt noted to have labile behavior throughout shift. Pt was initially very grateful when provided w/ medications and wound care / new dressing, stated wow this is so incredible and the other nurses are never nice to me. Pt intermittently w/ positive affect, other times tearful or angry. Various times pt expressing vague frustration toward this RN despite ongoing rapport building, attention to needs, and attempts at therapeutic communication. Pt asked several times is this the psych unit? and am I being held against my will? despite repeated education that this is the ER and she is admitted for medical care of wound and bloodstream infection. Pt also exhibiting defensive behavior, when returning from bathroom w/ IV tubing tangled stated unprompted I didn't mess with that I promise! When directed back to her room due to + COVID status pt again tearful and states everyone keeps yelling at me and I don't know why, this is even worse than when they locked me in the psych burr. Pt also medicated repeatedly but continues to deny any alleviation of pain or anxiety. Patient speech slurred, falling asleep during conversation but continues to request additional medication. Pt not receptive to education on the risks associated w/ over-administration of sedating medications. With most recent dose of hydromorphone pt stated I don't know if I can stay here. Pt left hospital AMA yesterday, attempted to explain to pt that continuing to leave prior to completion of abx will result in persistent infection and sepsis risk. Pt also requesting something to help me pee though she has urinated multiple times per hour throughout the day and night. MD Lindo aware and has also been at bedside to attempt to explain POC to pt.?
--- NOTE | 2021-07-10 02:34 | P.EN_ITS ---
Event Note Date of Service: 07/10/21 Event Note: Patient mostly against medical advice. I explained to her extensi devika that she has blood cultures: Growing Gram-positive bacteria and that if she is is not treated she can develop sepsis and I as a result, patient reports that she is anxious and cannot sleep, I gave her 1 dose of Ativan to help alleviate this but despite this she wants to leave AMA. She understands the risks she is taking by leaving AMA.
--- NOTE | 2021-07-10 02:35 | PC.NURSE ---
Pt educated on AMA form, seen by and explained risks of leaving. Pt signed AMA form with RN present. stated patient can leave after signing form. IV removed.
--- NOTE | 2021-07-10 03:43 | PC.NURSE ---
Pt was discharged AMA, PIV removed, ambulatory w/ steady gait out of dept. In NAD and in possession of all belongings at time of dc
== END 2021-07-10 02:43 | disposition left against medical advice (07) | DRG 724 ==
LOC: HO.ED 09:24 → HO.EDOVER 14:03
PROVIDERS: Admitting Provider Hospitalist; Emergency Provider Emergency Medicine; PCP Internal Medicine; Visit Provider Hospitalist
DX: R78.81 Bacteremia (principal); U07.1 COVID-19; L97.929 Non-pressure chronic ulcer of unspecified part of left lower leg with unspecified severity; B96.5 Pseudomonas (aeruginosa) (mallei) (pseudomallei) as the cause of diseases classified elsewhere; G89.29 Other chronic pain; Q79.60 Ehlers-Danlos syndrome, unspecified; B95.62 Methicillin resistant Staphylococcus aureus infection as the cause of diseases classified elsewhere; F17.210 Nicotine dependence, cigarettes, uncomplicated; Z71.6 Tobacco abuse counseling; Z79.899 Other long term (current) drug therapy
CPT/HCPCS: 36415; 80048; 80076; 83605; 83735; 85025; 87040; 99285; J0692; J1170; J3370

== ENCOUNTER 2021-07-13 13:29 | Emergency (ER) | payer OTHER, SELFPAY ==
[2021-07-13 18:14] VITALS: BP 122/87; PULSE 118; RESP 20; TEMP 37.5; O2SAT 100; BMI 24.3
--- NOTE | 2021-07-13 19:04 | ED.GENADULT ---
HPI - General Adult General Chief complaint: General Medical Stated complaint: myrna woodwardid + Time Seen by Provider: 07/13/21 18:01 Source: patient Mode of arrival: ambulatory Limitations: no limitations History of Present Illness HPI narrative: 35-year-old female presents due to a call back for positive blood cultures. Patient has a wound on her left lower extremity that cultured positive for MRSA and Pseudomonas. She also has a rash in her right upper back. These rashes started approximately 2 months ago. She was admitted July 08 2021 and blood cultures at that time grew out MRSA and Pseudomonas. Patient left AMA She has a past medical history of Erhlos Danlos, mast cell disease, chronic leg wound, chronic pain. She tells me she has seen a functional doctor, who diagnosed her with candidiasis and gave her several months of antifungals. States that she was admitted to [facility] for delusions of having Candiasis He has been applying nystatin to her left lower leg wound. States she was recently diagnosed with COVID, but has no COVID symptoms, no cough, no body aches, no headache. No fever. She has pain on her left lower extremity, the pain is worse with the dressing change and with air exposure. She denies drug use or alcohol use. Patient was here July 08, 2021, and was to be admitted for positive wound culture for MRSA and Pseudomonas, and left AMA. Patient was here July 09, 2021 and was admitted for same and 1/2 positive blood cultures, and left AMA. Related Data Home Medications Medication Instructions Recorded Confirmed chlorpromazine 100 mg tablet 1 tab PO QID 07/08/21 07/09/21 cholecalciferol (vitamin D3) 125 1 cap PO DAILY 07/08/21 07/09/21 mcg (5,000 unit) capsule clonazepam 1 mg tablet 1 tab PO BID PRN 07/08/21 07/09/21 diazepam 10 mg tablet 1 tab PO DAILY PRN 07/08/21 07/09/21 famotidine 40 mg tablet 1 tab PO BID 07/08/21 07/09/21 fluconazole 100 mg tablet 1 tab PO DAILY 07/08/21 07/09/21 gabapentin 300 mg capsule 1 cap PO TID 07/08/21 07/09/21 lamotrigine 150 mg tablet 1 tab PO DAILY 07/08/21 07/09/21 levocetirizine 5 mg tablet 5 mg PO BID 07/08/21 07/09/21 nystatin 500,000 unit tablet 500,000 unit PO TID 07/08/21 07/09/21 ondansetron HCl 4 mg tablet 4 mg PO DAILY PRN 07/08/21 07/09/21 quetiapine 25 mg tablet 1 - 3 tab PO BEDTIME PRN 07/08/21 07/09/21 tizanidine 4 mg tablet 1 tab PO TID PRN 07/08/21 07/09/21 Previous Rx's Medication Instructions Recorded cephalexin 500 mg capsule 500 mg PO QID 7 Days #28 cap 07/14/21 doxycycline hyclate 100 mg tablet 100 mg PO BID 10 Days #20 tab 07/14/21 oxycodone 5 mg capsule 5 mg PO Q8H PRN #9 cap 07/14/21 oxycodone 5 mg capsule 5 mg PO Q8H PRN 3 Days #9 cap 07/14/21 Allergies Allergy/AdvReac Type Severity Reaction Status Date / Time carisoprodol [From SOMA] Allergy Intermediate DOUBLE Unverified 04/11/20 15:56 VISION edrophonium [From TENSILON] Allergy Intermediate TACHYCARDIA Unverified 04/11/20 15:56 nitrofurantoin Allergy Intermediate TACHYCARDIA, Unverified 04/11/20 15:56 [From MACROBID] HIVES lactase Allergy Unknown GI ISSUES Unverified 04/11/20 15:56 [From LACTOSE FAST ACTING RELIEF] Review of Systems Constitutional: Constitutional: Reports body ache(s), Denies chills, Reports fatigue, Denies fever(s), Denies headache(s) and Denies weakness Eyes: Eyes: Denies diplopia ENT: Denies otalgia, Denies headache(s), Denies sore throat and Denies throat swelling Cardiovascular: Cardiovascular: Denies chest pain, Denies syncope, Denies leg edema, Denies lightheadedness, Denies Loss of Consciousness, Denies palpitations and Denies dyspnea Respiratory: Respiratory: Denies chest congestion, Denies cough and Denies dyspnea Gastrointestinal: Gastrointestinal: Denies abdominal pain, Denies hematochezia, Denies constipation, Denies diarrhea and Denies vomiting Genitourinary: Genitourinary: Reports no additional female genitourinary complaints Musculoskeletal: Musculoskeletal: Denies numbness and Denies tingling Comments: Pain left lower extremity Integumentary/Breasts: Comments: Large wound left lower extremity, erythematous with serous drainage and excoriations Neurologic: Denies confusion, Denies syncope, Denies headache(s), Denies numbness, Denies tingling and Denies weakness Psychiatric: Psychiatric: Reports anxiety, Denies confusion and Denies depression Endocrine: Endocrine: Reports fatigue and Denies palpitations Allergic/Immunologic: Allergic/Immunologic: Denies throat swelling PMFSH Past Medical History Medical History Connective tissue disease Interstitial cystitis Mast cell disease Stroke Thyroid cancer Social History Social History Alcohol intake: former Patient Tobacco Use Status: Current everyday Tobacco user Substance Use Type: Marijuana Advance Directives: No Advance Directives Information Provided: No Patient : No Physical Exam Vital Signs: Vital Signs: Last Vital Signs Temp 99.0 F 07/14/21 00:00 Pulse 106 H 07/14/21 00:00 Resp 16 07/14/21 00:00 BP 121/80 07/14/21 00:00 Pulse Ox 100 07/14/21 00:00 BMI result Body Mass Index 24.3 Const: General: well developed, alert and awake; No confusion Nutritional Appearance: well nourished Orientation/consciousness: patient oriented x3 and No confusion Limitations: no limitations HENMT: Head: Yes normal to inspection, Yes normocephalic and Yes atraumatic Ears: hearing grossly normal bilaterally, external ears normal, TM's normal bilaterally and EAC's normal General nose exam: Normal external nose present Face and sinus: Yes normal facial exam and Yes sinuses nontender Mouth: Normal oral and palatal mucosa present Throat: Yes posterior oropharynx normal Eyes: Conjunctivae: conjunctivae normal Pupils: Equal, round and reactive pupils present EOM: EOMs intact bilaterally Neck: Neck: Yes full ROM, Yes no lymphadenopathy and Yes supple Resp: Effort & Inspection: normal respiratory effort and able to speak in complete sentences Auscultation: clear to auscultation bilaterally, no crackles, no rales, no rhonchi and no wheezes Cardio: Rate: regular rate Rhythm: regular rhythm Heart sounds: S1 normal heart sound present and S2 normal heart sound present GI: Inspection: Yes normal to inspection Palpation (GI): Soft to palpation, nontender, no guarding and not rigid Percussion: Yes normal to percussion Auscultation: normal bowel sounds Skin: Other: Left lower extremity with a large erythematous and scaly wound medially with central areas of oozing with purulence coating and discharge. Right upper back has erythema that is well demarcated with a regular borders, crusting and scabbing that is tender and warm to the touch. Wounds: wounds noted left mid lower leg bed with slough, drainage white and serous, margins well approximated, well defined, with surrounding erythema and indurated and with surrounding erythema; Negative for not malodorous Neuro: General: patient oriented x3 and No confusion Cranial nerves: Yes Equal, round and reactive pupils present Extrem: General: Yes full ROM Left lower extremity: normal capillary refill; No no cyanosis and no edema Psych: Appearance: grossly normal Affect: Animated affect present and Anxious affect present Attitude: cooperative Course Course Course Narrative: 35-year-old female who returns for positive blood cultures and a wound on her left lower extremity Patient also has rash on her right upper back, which she states is getting better. Pt was admitted twice in the last 5 days for IV antibiotics for MRSA and Pseudomonas positive wound on left lower extremity. She left both times AMA Patient was called back for positive blood culture Patient is a temperature 99.5? and is tachycardic. Getting basic labs, lactate, blood culture, giving fluids, giving vanco and cefepime, dilaudid for pain. Reevaluation(s) Reevaluation #1: Discussed with hospitalist that patient had a negative blood culture from July 09, and most likely coag-negative staph is a contaminant. Patient has no leukocytosis, negative lactate. Will discharge patient on oral doxycycline and Keflex, with follow-up with Wound Center Patient is still COVID positive, which could be source of her pain. Medical Decision Making Lab Data Result diagrams: 07/13/21 21:11 07/13/21 21:11 Labs: Lab Results 07/13/21 07/13/21 07/13/21 Range/Units 20:55 20:55 21:11 WBC 6.0 (4.8-10.8) X10*3/uL RBC 3.43 L (4.20-5.50) X10*6/uL Hgb 10.4 L (12.0-16.0) g/dl Hct 33.4 L (37.0-47.0) % MCV 97.4 (80.0-98.0) fL MCH 30.3 (27.0-33.0) pg MCHC 31.1 (31.0-35.0) g/dl RDW 15.0 (11.0-16.0) % Plt Count 379 (160-400) X10*3/uL MPV 10.0 (9.4-12.3) fL Immature Gran % (Auto) 0.5 H (0.0-0.4) % Neut % (Auto) 65.5 (45-73) % Lymph % (Auto) 23.7 (20-40) % Graves % (Auto) 8.0 (2-11) % Eos % (Auto) 2.0 (0-4) % Baso % (Auto) 0.3 (0-2) % Lymph # (Auto) 1.4 (1.2-4.9) X10*3/uL Graves # (Auto) 0.5 (0.1-1.2) X10*3/uL Eos # (Auto) 0.1 (0.0-0.4) X10*3/uL Baso # (Auto) 0.0 (0.0-0.2) X10*3/uL Abs Immat Gran (auto) 0.03 (0.00-0.03) X10*3/uL Absolute Neuts (auto) 4.0 (2.0-8.3) x10*3/uL Absolute Nucleated RBC 0.000 (0.0-0.012) X10*3/uL Nucleated RBC % (auto) 0.0 (0.0-0.2) /100WBC Sodium (135-145) mmol/L Potassium (3.3-5.1) mmol/L Chloride (96-108) mmol/L Carbon Dioxide (22-29) mmol/L Anion Gap (12-20) BUN (9-16) mg/dL Creatinine (0.5-1.4) mg/dL Estim Creat Clear Calc Estimated GFR Random Glucose (60-115) mg/dL Lactic Acid (0.5-2.0) mmol/L Calcium (8.4-10.2) mg/dL Total Bilirubin (0.0-1.0) mg/dL AST (5-31) U/L ALT (0-31) U/L Alkaline Phosphatase (39-117) U/L Total Protein (6.5-8.0) g/dL Albumin (3.5-5.0) g/dL Urine Color YELLOW Urine Appearance CLEAR Urine pH 6.0 (5.0-8.0) Ur Specific Madelia 1.025 (1.005-1.025) Urine Protein NEG (NEG-TRACE) MG/DL Urine Glucose (UA) NEG (NEG) MG/DL Urine Ketones NEG (NEG) MG/DL Urine Blood NEG (NEG) Urine Nitrite NEG (NEG) Ur Leukocyte Esterase NEG (NEG) Urine Test NEGATIVE (NEGATIVE) COVID-19 ([facility]) (Negative) COVID-19 Clin Com 07/13/21 07/13/21 07/13/21 Range/Units 21:11 21:11 21:11 WBC (4.8-10.8) X10*3/uL RBC (4.20-5.50) X10*6/uL Hgb (12.0-16.0) g/dl Hct (37.0-47.0) % MCV (80.0-98.0) fL MCH (27.0-33.0) pg MCHC (31.0-35.0) g/dl RDW (11.0-16.0) % Plt Count (160-400) X10*3/uL MPV (9.4-12.3) fL Immature Gran % (Auto) (0.0-0.4) % Neut % (Auto) (45-73) % Lymph % (Auto) (20-40) % Graves % (Auto) (2-11) % Eos % (Auto) (0-4) % Baso % (Auto) (0-2) % Lymph # (Auto) (1.2-4.9) X10*3/uL Graves # (Auto) (0.1-1.2) X10*3/uL Eos # (Auto) (0.0-0.4) X10*3/uL Baso # (Auto) (0.0-0.2) X10*3/uL Abs Immat Gran (auto) (0.00-0.03) X10*3/uL Absolute Neuts (auto) (2.0-8.3) x10*3/uL Absolute Nucleated RBC (0.0-0.012) X10*3/uL Nucleated RBC % (auto) (0.0-0.2) /100WBC Sodium 140 (135-145) mmol/L Potassium 4.2 (3.3-5.1) mmol/L Chloride 107 (96-108) mmol/L Carbon Dioxide 28 (22-29) mmol/L Anion Gap 9 L (12-20) BUN 12 (9-16) mg/dL Creatinine 0.61 (0.5-1.4) mg/dL Estim Creat Clear Calc 127.5 Estimated GFR > 60 Random Glucose 78 (60-115) mg/dL Lactic Acid 0.7 (0.5-2.0) mmol/L Calcium 9.1 (8.4-10.2) mg/dL Total Bilirubin 0.2 (0.0-1.0) mg/dL AST 18 (5-31) U/L ALT 14 (0-31) U/L Alkaline Phosphatase 60 (39-117) U/L Total Protein 6.6 (6.5-8.0) g/dL Albumin 3.9 (3.5-5.0) g/dL Urine Color Urine Appearance Urine pH (5.0-8.0) Ur Specific Madelia (1.005-1.025) Urine Protein (NEG-TRACE) MG/DL Urine Glucose (UA) (NEG) MG/DL Urine Ketones (NEG) MG/DL Urine Blood (NEG) Urine Nitrite (NEG) Ur Leukocyte Esterase (NEG) Urine Test (NEGATIVE) COVID-19 ([facility]) Positive A (Negative) COVID-19 Clin Com See Note Discharge Plan Discharge Clinical Impression: Open wound, lower leg, Positive culture findings in wound, COVID-19 Patient Disposition: Home, Self-Care Additional Instructions: I have referred you to Wound Care and they should be calling you for an appointment. You may have an appointment when you are 10 days out from her positive COVID test with no symptoms. I have sent pain medication and two antibiotics to your pharmacy. Please take antibiotics, one for 7 days, one for 10 days. Please return to emergency room if you have fevers, worsening pain, or any other new or concerning symptoms. Prescriptions: New doxycycline hyclate 100 mg tablet 100 mg PO BID 10 Days Qty: 20 RF: 0 oxycodone 5 mg capsule 5 mg PO Q8H PRN (Reason: pain) 3 Days Qty: 9 RF: 0 oxycodone 5 mg capsule 5 mg PO Q8H PRN (Reason: pain) Qty: 9 RF: 0 cephalexin 500 mg capsule 500 mg PO QID 7 Days Qty: 28 RF: 0 No Action quetiapine 25 mg tablet 1 - 3 tab PO BEDTIME PRN (Reason: Insomnia) RF: 0 lamotrigine 150 mg tablet 1 tab PO DAILY RF: 0 chlorpromazine 100 mg tablet 1 tab PO QID RF: 0 fluconazole 100 mg tablet 1 tab PO DAILY RF: 0 famotidine 40 mg tablet 1 tab PO BID RF: 0 clonazepam 1 mg tablet 1 tab PO BID PRN (Reason: Anxiety) RF: 0 nystatin 500,000 unit tablet 500,000 unit PO TID RF: 0 gabapentin 300 mg capsule 1 cap PO TID RF: 0 diazepam 10 mg tablet 1 tab PO DAILY PRN (Reason: Anxiety) RF: 0 levocetirizine 5 mg tablet 5 mg PO BID RF: 0 tizanidine 4 mg tablet 1 tab PO TID PRN (Reason: SPASM) RF: 0 ondansetron HCl 4 mg tablet 4 mg PO DAILY PRN (Reason: Nausea) RF: 0 cholecalciferol (vitamin D3) 125 mcg (5,000 unit) capsule 1 cap PO DAILY RF: 0 Referrals: Concepcion Maria PA [Physician [employer]] - 2 days Interventions: ED Discharge Assessment Last Done: 07/14/21 01:01 Discharge Date/Time: 07/14/21 01:07
[2021-07-13] MEDS: 0.9 % Sodium Chloride 2,109.21 ML 2109.21 ML IV (19:53)
[2021-07-13] MEDS: HYDROmorphone HCl 1 MG/ML SYRINGE IVPUSH (20:27)
[2021-07-13 21:20] LABS: MANUAL DIFF FLAG NO
[2021-07-13 21:33] LABS: Lactic Acid 0.7 mmol/L (0.5-2.0)
[2021-07-13 21:37] LABS: Appearance Urine CLEAR; Color Urine YELLOW; Glucose Urine UA NEG (NEG); Leukocyte Esterase Urine NEG (NEG); Nitrite Urine NEG (NEG); Specific Gravity - Urine 1.025 (1.005-1.025); Urine Blood NEG (NEG); Urine Ketones NEG (NEG); Urine Protein NEG (NEG-TRACE)
[2021-07-13 21:38] LABS: Alanine Aminotransferase 14 U/L (0-31); Albumin Level 3.9 g/dL (3.5-5.0); Alkaline Phosphatase 60 U/L (39-117); Anion Gap 9 (12-20); Aspartate Amino Transferase 18 U/L (5-31); Basophils Percent Auto 0.3 % (0-2); Bilirubin Total 0.2 mg/dL (0.0-1.0); Blood Urea Nitrogen 12 mg/dL (9-16); Calcium 9.1 mg/dL (8.4-10.2); Carbon Dioxide 28 mmol/L (22-29); Chloride 107 mmol/L (96-108); Creatinine Clr Calc Pharmacy 127.5; Eosinophils Absolute Auto 0.1 X10*3/uL (0.0-0.4); Estimated Glomerular Filt Rate > 60; Glucose Random 78 mg/dL (60-115); Hematocrit 33.4 % (37.0-47.0); Hemoglobin 10.4 g/dl (12.0-16.0); Imm Gran Abs Auto 0.03 X10*3/uL (0.00-0.03); Imm Gran Pct Auto 0.5 % (0.0-0.4); Lymphocytes Absolute Auto 1.4 X10*3/uL (1.2-4.9); Lymphocytes Percent Auto 23.7 % (20-40); Mean Corpuscular HGB Conc 31.1 g/dl (31.0-35.0); Mean Corpuscular Hemoglobin 30.3 pg (27.0-33.0); Mean Corpuscular Volume 97.4 fL (80.0-98.0); Monocytes Absolute Auto 0.5 X10*3/uL (0.1-1.2); Neutrophils Percent Auto 65.5 % (45-73); Platelet Count 379 X10*3/uL (160-400); Potassium 4.2 mmol/L (3.3-5.1); Red Blood Count 3.43 X10*6/uL (4.20-5.50); Sodium 140 mmol/L (135-145); Total Protein 6.6 g/dL (6.5-8.0)
[2021-07-13 21:38] LABS: UPreg QC Valid YES; Urine Pregnancy NEGATIVE (NEGATIVE)
[2021-07-13 21:54] VITALS: BP 118/84; PULSE 86; RESP 18; TEMP 37.2; O2SAT 100
[2021-07-13 21:55] LABS: COVID-19 Test Positive (Negative)
[2021-07-13] MEDS: cefEPime HCl 2 GM in 0.9 % Sodium Chloride 50 ML IV (22:06)
[2021-07-13] MEDS: vancomycin HCL 750 MG in 0.9 % Sodium Chloride 250 ML 265 MG IV (23:04)
[2021-07-14] VITALS: BP 121/80; PULSE 106; RESP 16; TEMP 37.2; O2SAT 100
[2021-07-14] MEDS: HYDROmorphone HCl 0.5 MG/0.5 ML SYRINGE IVPUSH (00:02)
--- NOTE | 2021-07-14 01:00 | PC.NURSE ---
PT WOUND TO LEFT LEG CLEANED AND BACTRIAN APPLIED WITH NON STICK DSD. RASDH TO BACK CLEANED AND NON STICK DSD APPLIED.
--- NOTE | 2021-07-14 01:05 | PC.NURSE ---
PT WAS UPSET SHE WAS CALLED IN FOR POSITIVE BLOOD CULTURE AND THEN SHE WAS TOLD THEY WERE A POSSIBLE CONTAMINATION AND SHE WOULD GO HOME WITH ANTIBIOTICS.
== END 2021-07-14 01:07 | disposition home or self-care (01) ==
PROVIDERS: Physician Assistant; Emergency Provider Emergency Medicine; PCP Internal Medicine
DX: U07.1 COVID-19 (principal); S81.802D Unspecified open wound, left lower leg, subsequent encounter; B95.62 Methicillin resistant Staphylococcus aureus infection as the cause of diseases classified elsewhere; B96.5 Pseudomonas (aeruginosa) (mallei) (pseudomallei) as the cause of diseases classified elsewhere; X58.XXXD Exposure to other specified factors, subsequent encounter; R50.9 Fever, unspecified; R00.0 Tachycardia, unspecified; F17.200 Nicotine dependence, unspecified, uncomplicated
CPT/HCPCS: 36415; 80053; 81003; 81025; 83605; 85025; 87040; 87071; 87205; 87635; 96361; 96374; 96375; 96376; 99284; J0692; J1170; J3370